=== PATIENT | female | born 1965 | race Caucasian/White ===

== ENCOUNTER 2016-12-18 07:32 | Day surgery (SDC) | payer MEDICAID ==
[~2016-12-18] VITALS: Ht 162.6 cm; Wt 62.6 kg
[2016-12-24] MEDS ORDERED: PROZAC20 MG PO (01:59)
[2016-12-24] MEDS ORDERED: WELLBUTRIN XL150 MG PO (01:59)
== END 2016-12-18 09:40 | disposition short-term general hospital (02) ==
LOC: SURGOP 07:32
PROC: 0DBH8ZZ Excision of Cecum, Via Natural or Artificial Opening Endoscopic (ICD-10-PCS; principal; 2016-12-18)
DX: Z12.11 Encounter for screening for malignant neoplasm of colon (principal); K63.5 Polyp of colon; G56.00 Carpal tunnel syndrome, unspecified upper limb; F17.210 Nicotine dependence, cigarettes, uncomplicated; Z98.51 Tubal ligation status; Z90.49 Acquired absence of other specified parts of digestive tract; Z88.6 Allergy status to analgesic agent; Z79.899 Other long term (current) drug therapy
CPT/HCPCS: J2175; J2250

== ENCOUNTER 2016-12-23 21:11 | Emergency (ER) | payer MEDICAID ==
[~2016-12-23] VITALS: Ht 162.6 cm; Wt 61.2 kg
[2016-12-24] MEDS ORDERED: PROZAC20 MG PO (01:59)
[2016-12-24] MEDS ORDERED: WELLBUTRIN XL150 MG PO (01:59)
== END 2016-12-23 22:40 | disposition short-term general hospital (02) ==
LOC: ER 21:11
DX: K92.1 Melena (principal); F41.9 Anxiety disorder, unspecified; F32.9 Major depressive disorder, single episode, unspecified; Z88.5 Allergy status to narcotic agent; F17.210 Nicotine dependence, cigarettes, uncomplicated; Z98.890 Other specified postprocedural states; Z79.899 Other long term (current) drug therapy